=== PATIENT | female | born 1960 | race Caucasian/White ===

== ENCOUNTER 2016-12-14 18:11 | Emergency (ER) | payer OTHER, BC ==
--- NOTE | 2016-12-14 19:50 | DIAGNOSTIC IMAGING REPORT ---
PROCEDURE: XR CHEST 1 VIEW INDICATION: CHEST PAIN TECHNIQUE: Portable AP view (1930 hours). COMPARISON: None. FINDINGS: Lungs are clear. Heart and mediastinum are normal. Thorax is normal. IMPRESSION: 1. Negative chest.
--- NOTE | 2016-12-14 21:13 | ED CLINICAL REPORT ---
Clinical Report - Physicians/Mid Levels [facility] [address] [place] [place] [address] 12/14/2016 18:13 Patient: MISSAEL PECK Time Seen: 1820; initial patient contact. Arrived- By private vehicle. Historian- patient. HISTORY OF PRESENT ILLNESS Chief Complaint: PALPITATIONS. This started yesterday and is now gone (lasted 4 minutes). Onset during rest. History of caffeine use prior to onset. No history of decongestants use prior to onset, cocaine use prior to onset or amphetamine use prior to onset. It was abrupt in onset and has been constant. Modifying factors. Not worsened by anything. Not relieved by anything. It is described as a fast heart beat. She complains of dizziness. No chest pain, sweating episodes, fainting episodes or tingling. She has had chest discomfort, difficulty breathing and dizziness. Similar symptoms previously: None. Recent medical care: Not recently seen/assessed. REVIEW OF SYSTEMS No fever, chills, orthopnea or calf pain. All systems otherwise negative, except as recorded above. PAST HISTORY Chronic lymphoid leukemia, disease. Hypothyroidism. ADDITIONAL SURGERIES: Hysterectomy. Neck Surgery. -. SOCIAL HISTORY Former smoker. Occasional alcohol use. No drug use. ADDITIONAL NOTES The nursing notes have been reviewed. PHYSICAL EXAM Vital Signs: 12/14/2016 18:43 BP: 141/82. HR: 80. RR: 16. O2 saturation: 100%. Have been reviewed. Hypertensive. Heart rate normal. Respiratory rate normal. Temperature normal. Oxygen saturation normal. Appearance: Alert. Oriented X3. No acute distress. Eyes: Eyes normal inspection. ENT: Pharynx normal. Neck: Normal inspection. Neck supple. No JVD, carotid bruit, lymphadenopathy or thyromegaly. CVS: Normal heart rate and rhythm. Heart sounds normal. Respiratory: No respiratory distress. Breath sounds normal. Skin: Skin warm and dry. Normal skin color. Extremities: No calf tenderness. No lower extremity edema. Neuro: Oriented X 3. LABS, X-RAYS, AND EKG EKG: EKG time: (1841). No acute process. No acute ischemia. Normal EKG. Normal sinus rhythm. Rate: 73. Normal P waves. Normal MICAH. Normal QRS complex. Normal axis. Normal ST and T waves, QT and QTc. Prior EKG unavailable. The study has been interpreted contemporaneously by me. The study has been independently viewed by me. The EKG appears to be a good tracing. Interpretation time: 1841. Laboratory Tests: UA-Culture if indicated: (ELIDA: 12/14/2016 19:29) ( [facility] 12/14/2016 20:05) Final results Test Result Flag Units (Reference) URINE COLOR STRAW URINE APPEARANCE CLEAR URINE GLUCOSE NEGATIVE (NEGATIVE) URINE BILIRUBIN NEGATIVE (NEGATIVE) URINE KETONE NEGATIVE (NEGATIVE) URINE SPECIFIC GRAVITY <= 1.005 L (1.010-1.030) URINE PH 6.0 (5.0-8.0) URINE PROTEIN NEGATIVE (NEGATIVE) URINE UROBILINOGEN 0.2 EU/dL (0.2-1.0) URINE NITRITE NEGATIVE (NEGATIVE) URINE BLOOD TRACE-INTACT (NEGATIVE) URINE LEUK ESTERASE NEGATIVE (NEGATIVE) URINE RBC NONE SEEN rbc/hpf (0-1) URINE WBC RARE wbc/hpf (0-1) URINE EPITHELIAL CELLS RARE EPI/hpf (0-5) URINE BACTERIA NONE SEEN (NONE SEEN) URINE COMMENT CULT NOT INDICATED URINE CULTURES ARE SET-UP BASED ON THE FOLLOWING CRITERIA:POSITIVE NITRITEPOSITIVE LEUKOCYTE ESTERASEGREATER THAN 10 WHITE BLOOD CELLSMODERATE (2+) OR GREATER BACTERIA CBC w Diff: (ELIDA: 12/14/2016 19:39) ( [facility] 12/14/2016 19:56) IP Test Result Flag Units (Reference) WHITE BLOOD COUNT 20.8 H K/uL (4.5-11.5) RED BLOOD COUNT 4.94 M/uL (4.00-5.20) HEMOGLOBIN 14.4 gm/dL (12.0-16.0) HEMATOCRIT 43.4 % (36.0-46.0) MEAN CELL VOLUME 88 fL (80-100) MEAN CORPUSCULAR HGB 29 pg (26-34) MEAN CORPUSCULAR HGB CONC 33 g/dL (31-37) RED CELL DISTRIBUTION WIDTH 14.0 % (11.6-14.8) PLATELET COUNT 191 K/uL (150-400) LYMPH % 73.8 H % (25-40) MONO % 3.4 % (3-14) GRANULOCYTE % 22.8 L (53-90) PT with INR: (ELIDA: 12/14/2016 19:39) ( [facility] 12/14/2016 20:53) Final results Test Result Flag Units (Reference) INR 0.9 (0.8-1.2) Low Intensity Therapy: INR 1.5-2.0 PT range 18.5-23.1Mod.Intensity Therapy: INR 2.0-3.0 PT range 23.1-31.5High Intensity Therapy: INR 2.5-3.5 PT range 27.4-35.5High Intensity Therapy 2: INR 3.0-4.0 PT range 31.5-39.3 APTT 25 SECONDS (24-34) D-DIMER QUANTITATIVE 0.44 ug/mLFEU (0.27-0.52) The primary value of this quantitative assay relates toits negative predictive value (i.e. exclusion) of pulmonaryembolism/deep vein thrombosis/DIC.Elevated levels of d-dimer may also occur with:, age, cancer, inflammation, liver disease,post-op, infection, hematoma, coronary disease, peripheralarteriopathy, bleeding disorders and thrombolytic treatment.Results should be correlated with other clinical andradiological data.Testing Methodology: Latex Immunoassay BNP: (ELIDA: 12/14/2016 19:39) ( [facility] 12/14/2016 20:12) Final results Test Result Flag Units (Reference) B-TYPE NATRIURETIC PEPTIDE 21.3 pg/ml (5-100) TSH: (ELIDA: 12/14/2016 19:39) ( [facility] 12/14/2016 20:24) Final results Test Result Flag Units (Reference) THYROID STIMULATING HORMONE 0.027 L uIU/mL (0.30-3.74) CHEM 13 PANEL: (ELIDA: 12/14/2016 19:39) ( [facility] 12/14/2016 20:16) Final results Test Result Flag Units (Reference) GLUCOSE 101 mg/dL (70-110) BUN 12 mg/dL (7-18) CREATININE 0.8 mg/dL (0.6-1.3) Estimated GFR >60 mL/min Estimated GFR- >60 mL/min Note: Persistent reduction over 3 months in eGFR<60 mL/min/1.73 m2 defines CKD. Patients with eGFR values>=60 mL/min/1.73 m2 may also have CKD if evidence ofpersistent proteinuria. Additional information may be foundat www.kidney.org. SODIUM 143 mmol/L (136-145) POTASSIUM 3.9 mmol/L (3.5-5.1) CHLORIDE 107 mmol/L (98-107) CARBON DIOXIDE 26 mmol/L (21-32) CALCIUM 9.5 mg/dL (8.5-10.1) TOTAL PROTEIN 6.9 g/dL (6.4-8.2) ALBUMIN 3.9 g/dL (3.3-5.0) BILIRUBIN, TOTAL 0.4 mg/dL (0.0-1.0) ALKALINE PHOSPHATASE 71 U/L (46-116) AST (SGOT) 20 U/L (15-37) ALT (SGPT) 34 U/L (12-78) CPK 63 U/L (24-260) MAGNESIUM 2.2 mg/dL (1.8-2.4) TROPONIN I <0.05 L ng/mL (0.00-1.5) TROPONIN REFERENCE RANGE:<0.1 NEGATIVE0.1-1.5 INDETERMINANT>1.5 POSITIVE . PROGRESS AND PROCEDURES Disposition: Discharged home in good and improved condition. Condition: good. CLINICAL IMPRESSION Palpitations Acquired hypothyroidism (With supressed TSH). INSTRUCTIONS Avoid stimulants (such as cigarettes, coffee, cold medicines, sinus medicines, street drugs). Drink plenty of fluids. Your Current Medications: STOP TAKING THE FOLLOWING MEDICATIONS: Synthroid Oral. CONTINUE TAKING THE FOLLOWING MEDICATIONS: Ambien Oral. Follow-up: Screening today revealed the patient's blood pressure to be in the pre-hypertensive range. The patient should follow up with a primary care provider for blood pressure management. (Electronically signed by Akira Ulrich Dr. 12/14/2016 21:25)
--- NOTE | 2016-12-14 21:13 | ED NURSING NOTES ---
Clinical Report - Nurses [facility] [address] [place] [address] 12/14/2016 18:13 Patient: MISSAEL PECK TRIAGE Triage time 18:33. Acuity: LEVEL 2. Chief Complaint: ("twinges" in chest). 18:43 12/14/16. Alert. No acute distress. SEPSIS SCREEN: Sepsis Screen. Negative (no infection suspected/documented). --18:43 Juan Jean R.N. 18:43 12/14/16. BP: 141/82. HR: 80. RR: 16. O2 saturation: 100%. Pain level now 3/10. --18:43 Juan Jean R.N. Weight: 74.3 kg stated. Height/Length: 68 inches Per Patient. BMI: 24.9. --18:38 Juan Jean R.N. Medications Synthroid Oral. --18:39 Juan Jean R.N. Ambien Oral. --18:39 Juan Jean R.N. Allergies No Known Drug Allergy. --18:40 Juan Jean R.N. Medication/allergy information source: the patient. --18:43 Juan Jean R.N. History Arrived by private vehicle. Historian: patient. Accompanied by family. Primary physician (bud). ( felt "twinges" in her chest yesterday while driving, lasting only five minutes. states she felt her heart rate might have been a little fast.). Treatment GASTROENTEROLOGIST: (sudafed, robaxin). PAST MEDICAL HX: The patient has had a hysterectomy. Denies current . SOCIAL HX: Former smoker, end date 1996. Occasional alcohol use. No drug use. SELF HARM ASSESSMENT: A self harm assessment was performed. The patient answered "no" to the question "Do you have thoughts of harming or killing yourself?" and "Have you recently had thoughts about harming or killing others?". FALL RISK ASSESSMENT: Fall risk assessment completed. No fall risk identified. NUTRITIONAL RISK ASSESSMENT: The nutritional risk assessment revealed no deficiencies. FUNCTIONAL ASSESSMENT: Functional assessment: no impairments noted. LEARNING NEEDS ASSESSMENT: The learning needs assessment revealed no barriers. SKIN INTEGRITY ASSESSMENT: Skin integrity risk assessment completed. No skin integrity risk identified. --18:43 Juan Jean R.N. PROBLEMS: Chronic lymphoid leukemia, disease. Hypothyroidism. --18:41 Juan Jean R.N. ADDITIONAL SURGERIES: Hysterectomy. Neck Surgery. --18:41 Juan Jean R.N. Interventions ID band on patient. To treatment room. --18:43 Juan Jean R.N. PHYSICAL ASSESSMENT 18:43 12/14/16. Ambulatory to room. GENERAL / NEURO / PSYCH: Alert. Oriented X 4. Appears in no acute distress. RESPIRATORY: Respirations not labored. CVS: Capillary refill less than 2 seconds. GI / : Abdomen soft. EXTREMITIES: No lower extremity edema. SKIN: Skin is warm and dry. --18:43 Juan Jean R.N. NURSING PROGRESS NOTES 18:44 12/14/16. The plan of care for this patient has been created. personnel monitor, pulse oximeter and NIBP monitor placed on patient. Patient gowned. Head of bed elevated. Call light placed in reach. Bed placed in lowest position. Brakes of bed on. Patient ready for evaluation- chart flagged. --18:44 Juan Jean R.N. Cardiac rhythm: normal sinus rhythm. --18:45 Juan Jean R.N. EKG time: (1841). EKG was performed by a tech and shown to the ED physician. --18:46 Juan Jean R.N. Care transferred and report given (FRANSICO Lujan). --19:05 Juan Jean R.N. 19:40 12/14/2016 Site #1 started via IV in the right antecubital space with an 20g angiocath, with aseptic technique and good blood return; one attempt. Blood drawn: rainbow set. Labeled in the presence of the patient and sent to the lab. Saline lock flushed with 10 mL saline. --19:45 Le Phipps R.N. The patient reports no complaints and she is calm. Overall patient status is the same- she states feels the same. ( pt sitting waiting for dispo, no distress noted, will continue to monitor). RESPIRATORY: No respiratory distress. Breath sounds normal. CVS: Normal sinus rhythm noted. SKIN: Skin is warm and dry. Skin color within normal limits. Two patient identifiers checked. Call light placed in reach. Side rails up x 1. Bed placed in lowest position. Brakes of bed on. --21:06 Le Phipps R.N. 21:04 12/14/16. BP: 130/84 taken on the left arm, while sitting. HR: 65 (regular, normal rate and strong). RR: 18 (regular and labored). O2 saturation: 99% on room air. Temp: deferred. Pain level now: 0/10. --21:06 Le Phipps R.N. Reassurance given to the patient and patient's family. --21:06 Le Phipps R.N. DISPOSITION / DISCHARGE 21:30 12/14/2016 Site #1 removed upon discharge. Catheter intact. Manual pressure and bandage applied. --21:35 Le Phipps R.N. Condition at departure: improved and stable. No learning barriers present. Discharge instructions provided and reviewed with the patient. Reviewed referral to a primary care physician for followup. Reviewed diet (no stimulants). Patient verbalized understanding. Written instructions provided in La[place]. The patient was discharged home and accompanied by spouse. She left the Emergency Department ambulatory and via private vehicle. Spouse driving. --21:36 Le Phipps R.N. 21:30 12/14/16. BP: 136/98 taken on the left arm, while lying. HR: 66 (regular and normal rate). RR: 18 (regular, unlabored and normal). O2 saturation: 98% on room air. Temp: deferred. Pain level now: 0/10. --21:36 Le Phipps R.N. Departure time: 2132. --21:37 Le Phipps R.N. Locked/Released at 12/14/2016 21:37 by Le Phipps R.N.
--- NOTE | 2016-12-14 21:13 | ED NURSING NOTES ---
Clinical Report - Nurses [facility] [address] [place] [address] 12/14/2016 18:13 Patient: MISASEL PECK TRIAGE Triage time 18:33. Acuity: LEVEL 2. Chief Complaint: ("twinges" in chest). 18:43 12/14/16. Alert. No acute distress. SEPSIS SCREEN: Sepsis Screen. Negative (no infection suspected/documented). --18:43 Juan Jean R.N. 18:43 12/14/16. BP: 141/82. HR: 80. RR: 16. O2 saturation: 100%. Pain level now 3/10. --18:43 Juan Jean R.N. Weight: 74.3 kg stated. Height/Length: 68 inches Per Patient. BMI: 24.9. --18:38 Juan Jean R.N. Medications Synthroid Oral. --18:39 Juan Jean R.N. Ambien Oral. --18:39 Juan Jean R.N. Allergies No Known Drug Allergy. --18:40 Juan Jean R.N. Medication/allergy information source: the patient. --18:43 Juan Jean R.N. History Arrived by private vehicle. Historian: patient. Accompanied by family. Primary physician (bud). ( felt "twinges" in her chest yesterday while driving, lasting only five minutes. states she felt her heart rate might have been a little fast.). Treatment PIG HANDLER: (sudafed, robaxin). PAST MEDICAL HX: The patient has had a hysterectomy. Denies current . SOCIAL HX: Former smoker, end date 1996. Occasional alcohol use. No drug use. SELF HARM ASSESSMENT: A self harm assessment was performed. The patient answered "no" to the question "Do you have thoughts of harming or killing yourself?" and "Have you recently had thoughts about harming or killing others?". FALL RISK ASSESSMENT: Fall risk assessment completed. No fall risk identified. NUTRITIONAL RISK ASSESSMENT: The nutritional risk assessment revealed no deficiencies. FUNCTIONAL ASSESSMENT: Functional assessment: no impairments noted. LEARNING NEEDS ASSESSMENT: The learning needs assessment revealed no barriers. SKIN INTEGRITY ASSESSMENT: Skin integrity risk assessment completed. No skin integrity risk identified. --18:43 Juan Jean R.N. PROBLEMS: Chronic lymphoid leukemia, disease. Hypothyroidism. --18:41 Juan Jean R.N. ADDITIONAL SURGERIES: Hysterectomy. Neck Surgery. --18:41 Juan Jean R.N. Interventions ID band on patient. To treatment room. --18:43 Juan Jean R.N. PHYSICAL ASSESSMENT 18:43 12/14/16. Ambulatory to room. GENERAL / NEURO / PSYCH: Alert. Oriented X 4. Appears in no acute distress. RESPIRATORY: Respirations not labored. CVS: Capillary refill less than 2 seconds. GI / : Abdomen soft. EXTREMITIES: No lower extremity edema. SKIN: Skin is warm and dry. --18:43 Juan Jean R.N. NURSING PROGRESS NOTES 18:44 12/14/16. The plan of care for this patient has been created. film and video editor, pulse oximeter and NIBP monitor placed on patient. Patient gowned. Head of bed elevated. Call light placed in reach. Bed placed in lowest position. Brakes of bed on. Patient ready for evaluation- chart flagged. --18:44 Juan Jean R.N. Cardiac rhythm: normal sinus rhythm. --18:45 Juan Jean R.N. EKG time: (1841). EKG was performed by a tech and shown to the ED physician. --18:46 Juan Jean R.N. Care transferred and report given (FRANSICO Lujan). --19:05 Juan Jean R.N. 19:40 12/14/2016 Site #1 started via IV in the right antecubital space with an 20g angiocath, with aseptic technique and good blood return; one attempt. Blood drawn: rainbow set. Labeled in the presence of the patient and sent to the lab. Saline lock flushed with 10 mL saline. --19:45 Le Phipps R.N. The patient reports no complaints and she is calm. Overall patient status is the same- she states feels the same. ( pt sitting waiting for dispo, no distress noted, will continue to monitor). RESPIRATORY: No respiratory distress. Breath sounds normal. CVS: Normal sinus rhythm noted. SKIN: Skin is warm and dry. Skin color within normal limits. Two patient identifiers checked. Call light placed in reach. Side rails up x 1. Bed placed in lowest position. Brakes of bed on. --21:06 Le Phipps R.N. 21:04 12/14/16. BP: 130/84 taken on the left arm, while sitting. HR: 65 (regular, normal rate and strong). RR: 18 (regular and labored). O2 saturation: 99% on room air. Temp: deferred. Pain level now: 0/10. --21:06 Le Phipps R.N. Reassurance given to the patient and patient's family. --21:06 Le Phipps R.N. DISPOSITION / DISCHARGE 21:30 12/14/2016 Site #1 removed upon discharge. Catheter intact. Manual pressure and bandage applied. --21:35 Le Phipps R.N. Condition at departure: improved and stable. No learning barriers present. Discharge instructions provided and reviewed with the patient. Reviewed referral to a primary care physician for followup. Reviewed diet (no stimulants). Patient verbalized understanding. Written instructions provided in Greek. The patient was discharged home and accompanied by spouse. She left the Emergency Department ambulatory and via private vehicle. Spouse driving. --21:36 Le Phipps R.N. 21:30 12/14/16. BP: 136/98 taken on the left arm, while lying. HR: 66 (regular and normal rate). RR: 18 (regular, unlabored and normal). O2 saturation: 98% on room air. Temp: deferred. Pain level now: 0/10. --21:36 Le Phipps R.N. Departure time: 2132. --21:37 Le Phipps R.N. Locked/Released at 12/14/2016 21:37 by Le Phipps R.N.
--- NOTE | 2016-12-14 21:13 | ED ORDER SUMMARY ---
..... Patient: MISSAEL PECK OrderSheet VisitID: [id number] [address] [place] [address] 56y, F Registration Date/Time: 12/14/2016 ORDER SHEET Weight: 74.3 kg (stated) Allergies: No Known Drug Allergy GENERAL ORDERS: Chest 1V Urgent (19:12/14/2016 Emelia Mcbride) (Ack 19:27 IJurca ER Tech1) (19:33 CBradburn R.N.) Cardiac Panel Stat (:12/14/2016 Emelia Mcbride) (Ack 19:27 IJurca ER Tech1) (19:44 CBradburn R.N.) UA-Culture if indicated Urgent (:12/14/2016 Emelia Mcbride) (Ack 19:27 IJurca ER Tech1) (19:33 CBradburn R.N.) TSH Urgent (:12/14/2016 Emelia Mcbride) (Ack 19:27 IJurca ER Tech1) (19:44 CBradburn R.N.) PT with INR Urgent (:12/14/2016 Emelia Mcbride) (Ack 19:27 IJurca ER Tech1) (19:44 CBradburn R.N.) PTT Urgent (:12/14/2016 Emelia Mcbride) (Ack 19:27 IJurca ER Tech1) (19:44 CBradburn R.N.) D-Dimer Urgent (:12/14/2016 Emelia Mcbride) (Ack 19:27 IJurca ER Tech1) (19:44 CBradburn R.N.) BNP Urgent (:12/14/2016 Emelia Mcbride) (Ack 19:27 IJurca ER Tech1) (19:44 CBradburn R.N.) MEDICATION ORDERS: IV FLUIDS: IV Saline Lock (:12/14/2016 Emelia Mcbride) (19:45 CBradburn R.N.) ORDER SHEET NOTES: [Electronically signed by Akira Ulrich Dr. (21:25 12/14/2016)] [Electronically signed by Le Phipps R.N. (21:37 12/14/2016)] [Electronically locked/signed by Le Phipps R.N. (21:37 12/14/2016)]
--- NOTE | 2016-12-14 21:13 | ED ORDER SUMMARY ---
..... Patient: MISSAEL PECK OrderSheet [facility] VisitID: [id number] [address] [place] [address] 56y, F Registration Date/Time: 12/14/2016 ORDER SHEET Weight: 74.3 kg (stated) Allergies: No Known Drug Allergy GENERAL ORDERS: Chest 1V Urgent (19:12/14/2016 Emelia Mcbride) (Ack 19:27 IJurca ER Tech1) (19:33 CBradburn R.N.) Cardiac Panel Stat (:12/14/2016 Emelia Mcbride) (Ack 19:27 IJurca ER Tech1) (19:44 CBradburn R.N.) UA-Culture if indicated Urgent (:12/14/2016 Emelia Mcbride) (Ack 19:27 IJurca ER Tech1) (19:33 CBradburn R.N.) TSH Urgent (:12/14/2016 Emelia Mcbride) (Ack 19:27 IJurca ER Tech1) (19:44 CBradburn R.N.) PT with INR Urgent (:12/14/2016 Emelia Mcbride) (Ack 19:27 IJurca ER Tech1) (19:44 CBradburn R.N.) PTT Urgent (:12/14/2016 Emelia Mcbride) (Ack 19:27 IJurca ER Tech1) (19:44 CBradburn R.N.) D-Dimer Urgent (:12/14/2016 Emelia Mcbride) (Ack 19:27 IJurca ER Tech1) (19:44 CBradburn R.N.) BNP Urgent (:12/14/2016 Emelia Mcbride) (Ack 19:27 IJurca ER Tech1) (19:44 CBradburn R.N.) MEDICATION ORDERS: IV FLUIDS: IV Saline Lock (:12/14/2016 Emelia Mcbride) (19:45 CBradburn R.N.) ORDER SHEET NOTES: [Electronically signed by Akira Ulrich Dr. (21:25 12/14/2016)] [Electronically signed by Le Phipps R.N. (21:37 12/14/2016)] [Electronically locked/signed by Le Phipps R.N. (21:37 12/14/2016)]
--- NOTE | 2016-12-14 21:13 | ED CLINICAL REPORT ---
Clinical Report - Physicians/Mid Levels [facility] [address] [place] [address] 12/14/2016 18:13 Patient: MISSAEL PECK Time Seen: 1820; initial patient contact. Arrived- By private vehicle. Historian- patient. HISTORY OF PRESENT ILLNESS Chief Complaint: PALPITATIONS. This started yesterday and is now gone (lasted 4 minutes). Onset during rest. History of caffeine use prior to onset. No history of decongestants use prior to onset, cocaine use prior to onset or amphetamine use prior to onset. It was abrupt in onset and has been constant. Modifying factors. Not worsened by anything. Not relieved by anything. It is described as a fast heart beat. She complains of dizziness. No chest pain, sweating episodes, fainting episodes or tingling. She has had chest discomfort, difficulty breathing and dizziness. Similar symptoms previously: None. Recent medical care: Not recently seen/assessed. REVIEW OF SYSTEMS No fever, chills, orthopnea or calf pain. All systems otherwise negative, except as recorded above. PAST HISTORY Chronic lymphoid leukemia, disease. Hypothyroidism. ADDITIONAL SURGERIES: Hysterectomy. Neck Surgery. -. SOCIAL HISTORY Former smoker. Occasional alcohol use. No drug use. ADDITIONAL NOTES The nursing notes have been reviewed. PHYSICAL EXAM Vital Signs: 12/14/2016 18:43 BP: 141/82. HR: 80. RR: 16. O2 saturation: 100%. Have been reviewed. Hypertensive. Heart rate normal. Respiratory rate normal. Temperature normal. Oxygen saturation normal. Appearance: Alert. Oriented X3. No acute distress. Eyes: Eyes normal inspection. ENT: Pharynx normal. Neck: Normal inspection. Neck supple. No JVD, carotid bruit, lymphadenopathy or thyromegaly. CVS: Normal heart rate and rhythm. Heart sounds normal. Respiratory: No respiratory distress. Breath sounds normal. Skin: Skin warm and dry. Normal skin color. Extremities: No calf tenderness. No lower extremity edema. Neuro: Oriented X 3. LABS, X-RAYS, AND EKG EKG: EKG time: (1841). No acute process. No acute ischemia. Normal EKG. Normal sinus rhythm. Rate: 73. Normal P waves. Normal MICAH. Normal QRS complex. Normal axis. Normal ST and T waves, QT and QTc. Prior EKG unavailable. The study has been interpreted contemporaneously by me. The study has been independently viewed by me. The EKG appears to be a good tracing. Interpretation time: 1841. Laboratory Tests: UA-Culture if indicated: (ELIDA: 12/14/2016 19:29) ( [facility] [place] 12/14/2016 20:05) Final results Test Result Flag Units (Reference) URINE COLOR STRAW URINE APPEARANCE CLEAR URINE GLUCOSE NEGATIVE (NEGATIVE) URINE BILIRUBIN NEGATIVE (NEGATIVE) URINE KETONE NEGATIVE (NEGATIVE) URINE SPECIFIC GRAVITY <= 1.005 L (1.010-1.030) URINE PH 6.0 (5.0-8.0) URINE PROTEIN NEGATIVE (NEGATIVE) URINE UROBILINOGEN 0.2 EU/dL (0.2-1.0) URINE NITRITE NEGATIVE (NEGATIVE) URINE BLOOD TRACE-INTACT (NEGATIVE) URINE LEUK ESTERASE NEGATIVE (NEGATIVE) URINE RBC NONE SEEN rbc/hpf (0-1) URINE WBC RARE wbc/hpf (0-1) URINE EPITHELIAL CELLS RARE EPI/hpf (0-5) URINE BACTERIA NONE SEEN (NONE SEEN) URINE COMMENT CULT NOT INDICATED URINE CULTURES ARE SET-UP BASED ON THE FOLLOWING CRITERIA:POSITIVE NITRITEPOSITIVE LEUKOCYTE ESTERASEGREATER THAN 10 WHITE BLOOD CELLSMODERATE (2+) OR GREATER BACTERIA CBC w Diff: (ELIDA: 12/14/2016 19:39) ( [facility] [place] 12/14/2016 19:56) IP Test Result Flag Units (Reference) WHITE BLOOD COUNT 20.8 H K/uL (4.5-11.5) RED BLOOD COUNT 4.94 M/uL (4.00-5.20) HEMOGLOBIN 14.4 gm/dL (12.0-16.0) HEMATOCRIT 43.4 % (36.0-46.0) MEAN CELL VOLUME 88 fL (80-100) MEAN CORPUSCULAR HGB 29 pg (26-34) MEAN CORPUSCULAR HGB CONC 33 g/dL (31-37) RED CELL DISTRIBUTION WIDTH 14.0 % (11.6-14.8) PLATELET COUNT 191 K/uL (150-400) LYMPH % 73.8 H % (25-40) MONO % 3.4 % (3-14) GRANULOCYTE % 22.8 L (53-90) PT with INR: (ELIDA: 12/14/2016 19:39) ( [facility] 12/14/2016 20:53) Final results Test Result Flag Units (Reference) INR 0.9 (0.8-1.2) Low Intensity Therapy: INR 1.5-2.0 PT range 18.5-23.1Mod.Intensity Therapy: INR 2.0-3.0 PT range 23.1-31.5High Intensity Therapy: INR 2.5-3.5 PT range 27.4-35.5High Intensity Therapy 2: INR 3.0-4.0 PT range 31.5-39.3 APTT 25 SECONDS (24-34) D-DIMER QUANTITATIVE 0.44 ug/mLFEU (0.27-0.52) The primary value of this quantitative assay relates toits negative predictive value (i.e. exclusion) of pulmonaryembolism/deep vein thrombosis/DIC.Elevated levels of d-dimer may also occur with:, age, cancer, inflammation, liver disease,post-op, infection, hematoma, coronary disease, peripheralarteriopathy, bleeding disorders and thrombolytic treatment.Results should be correlated with other clinical andradiological data.Testing Methodology: Latex Immunoassay BNP: (ELIDA: 12/14/2016 19:39) ( [facility] 12/14/2016 20:12) Final results Test Result Flag Units (Reference) B-TYPE NATRIURETIC PEPTIDE 21.3 pg/ml (5-100) TSH: (ELIDA: 12/14/2016 19:39) ( [facility] 12/14/2016 20:24) Final results Test Result Flag Units (Reference) THYROID STIMULATING HORMONE 0.027 L uIU/mL (0.30-3.74) CHEM 13 PANEL: (ELIDA: 12/14/2016 19:39) ( [facility] 12/14/2016 20:16) Final results Test Result Flag Units (Reference) GLUCOSE 101 mg/dL (70-110) BUN 12 mg/dL (7-18) CREATININE 0.8 mg/dL (0.6-1.3) Estimated GFR >60 mL/min Estimated GFR- >60 mL/min Note: Persistent reduction over 3 months in eGFR<60 mL/min/1.73 m2 defines CKD. Patients with eGFR values>=60 mL/min/1.73 m2 may also have CKD if evidence ofpersistent proteinuria. Additional information may be foundat www.kidney.org. SODIUM 143 mmol/L (136-145) POTASSIUM 3.9 mmol/L (3.5-5.1) CHLORIDE 107 mmol/L (98-107) CARBON DIOXIDE 26 mmol/L (21-32) CALCIUM 9.5 mg/dL (8.5-10.1) TOTAL PROTEIN 6.9 g/dL (6.4-8.2) ALBUMIN 3.9 g/dL (3.3-5.0) BILIRUBIN, TOTAL 0.4 mg/dL (0.0-1.0) ALKALINE PHOSPHATASE 71 U/L (46-116) AST (SGOT) 20 U/L (15-37) ALT (SGPT) 34 U/L (12-78) CPK 63 U/L (24-260) MAGNESIUM 2.2 mg/dL (1.8-2.4) TROPONIN I <0.05 L ng/mL (0.00-1.5) TROPONIN REFERENCE RANGE:<0.1 NEGATIVE0.1-1.5 INDETERMINANT>1.5 POSITIVE . PROGRESS AND PROCEDURES Disposition: Discharged home in good and improved condition. Condition: good. CLINICAL IMPRESSION Palpitations Acquired hypothyroidism (With supressed TSH). INSTRUCTIONS Avoid stimulants (such as cigarettes, coffee, cold medicines, sinus medicines, street drugs). Drink plenty of fluids. Your Current Medications: STOP TAKING THE FOLLOWING MEDICATIONS: Synthroid Oral. CONTINUE TAKING THE FOLLOWING MEDICATIONS: Ambien Oral. Follow-up: Screening today revealed the patient's blood pressure to be in the pre-hypertensive range. The patient should follow up with a primary care provider for blood pressure management. (Electronically signed by Akira Ulrich Dr. 12/14/2016 21:25)
--- NOTE | 2016-12-14 21:37 | ED MED RECONCILIATION SUMMARY ---
Patient: VITO PECKNorm Shola Medication Reconciliation Report [facility] VisitID: [id number] [address] [place] [place] [address] 56y, F Registration Date/Time: 12/14/2016 Weight: 74.3 kg Height/Length: 68 in. BMI: 24.9 ALLERGIES: No Known Drug Allergy The patient's Home Medications are listed below: STOP TAKING THE FOLLOWING MEDICATIONS: Synthroid Oral CONTINUE TAKING THE FOLLOWING MEDICATIONS: Ambien Oral The source(s) of the original Home Medication information: patient The following Medications were given to the patient in the Emergency Department: None. The following Medications were prescribed to the patient: None.
--- NOTE | 2016-12-14 21:37 | ED MED RECONCILIATION SUMMARY ---
Patient: VITO PECKNorm Shola Medication Reconciliation Report [facility] VisitID: [id number] [address] [place] [address] 56y, F Registration Date/Time: 12/14/2016 Weight: 74.3 kg Height/Length: 68 in. BMI: 24.9 ALLERGIES: No Known Drug Allergy The patient's Home Medications are listed below: STOP TAKING THE FOLLOWING MEDICATIONS: Synthroid Oral CONTINUE TAKING THE FOLLOWING MEDICATIONS: Ambien Oral The source(s) of the original Home Medication information: patient The following Medications were given to the patient in the Emergency Department: None. The following Medications were prescribed to the patient: None.
--- NOTE | 2016-12-14 21:37 | ED DISCHARGE INSTRUCTIONS ---
Patient: MISSAEL PECK General Instructions [facility] VisitID: [id number] [address] [place] [address] 56y, F Registration Date/Time: 12/14/2016 Palpitations Acquired hypothyroidism (With supressed TSH). INSTRUCTIONS Avoid stimulants (such as cigarettes, coffee, cold medicines, sinus medicines, street drugs). Drink plenty of fluids. Your Current Medications: STOP TAKING THE FOLLOWING MEDICATIONS: Synthroid Oral. CONTINUE TAKING THE FOLLOWING MEDICATIONS: Ambien Oral. Follow-up: Screening today revealed the patient's blood pressure to be in the pre-hypertensive range. The patient should follow up with a primary care provider for blood pressure management. ADDITIONAL INFORMATION Heart Palpitations Palpitations refers to the feeling that your heart is beating hard, fast or irregular. Some people describe it as "pounding" or "skipped beats". Palpitations may occur in persons with heart disease, but can also occur in healthy persons. Heart-Related Causes: Arrhythmia (a change from the heart's normal rhythm) Disease of the heart valves Cet-Mfhto-Zttnjaq Causes: Certain medicines (such as asthma inhalers and decongestants) Some herbal supplements, energy drinks and pills, and weight loss pills Illegal stimulant drugs (such as cocaine, crank, methamphetamine, PCP) Caffeine, alcohol and tobacco Medical conditions such as thyroid disease, anemia, anxiety and panic disorder Sometimes the cause cannot be found. Home Care: Avoid excess caffeine, alcohol, tobacco and any stimulant drugs. Tell your doctor about any prescription or fmyj-ttl-saeermx or herbal medicines you take. Follow Up with your doctor or as advised by our staff. Get Prompt Medical Attention if any of the following occur together with palpitations: Weakness, dizziness, light-headed or fainting Chest pain or shortness of breath Rapid heart rate (over 120 beats per minute, at rest) Palpitations that lasts over 20 minutes Weakness of an arm or leg or one side of the face Difficulty with speech or vision You have been given the following additional information: Palpitations (Electronically signed by Akira Ulrich Dr. 12/14/2016 21:25)
--- NOTE | 2016-12-14 21:37 | ED MAR SUMMARY ---
..... Medication Administration Record [facility] [address] [place] [address] Patient: MISSAEL PECK Visit ID: [id number] 56y, F Weight: 74.3 kg Height/Length: 68 in BMI: 24.9 ALLERGIES: No Known Drug Allergy
--- NOTE | 2016-12-14 21:37 | ED DISCHARGE INSTRUCTIONS ---
Patient: MISSAEL PECK General Instructions [facility] VisitID: [id number] [address] [place] [address] 56y, F Registration Date/Time: 12/14/2016 Palpitations Acquired hypothyroidism (With supressed TSH). INSTRUCTIONS Avoid stimulants (such as cigarettes, coffee, cold medicines, sinus medicines, street drugs). Drink plenty of fluids. Your Current Medications: STOP TAKING THE FOLLOWING MEDICATIONS: Synthroid Oral. CONTINUE TAKING THE FOLLOWING MEDICATIONS: Ambien Oral. Follow-up: Screening today revealed the patient's blood pressure to be in the pre-hypertensive range. The patient should follow up with a primary care provider for blood pressure management. ADDITIONAL INFORMATION Heart Palpitations Palpitations refers to the feeling that your heart is beating hard, fast or irregular. Some people describe it as "pounding" or "skipped beats". Palpitations may occur in persons with heart disease, but can also occur in healthy persons. Heart-Related Causes: Arrhythmia (a change from the heart's normal rhythm) Disease of the heart valves Sgr-Uyjto-Iuimoix Causes: Certain medicines (such as asthma inhalers and decongestants) Some herbal supplements, energy drinks and pills, and weight loss pills Illegal stimulant drugs (such as cocaine, crank, methamphetamine, PCP) Caffeine, alcohol and tobacco Medical conditions such as thyroid disease, anemia, anxiety and panic disorder Sometimes the cause cannot be found. Home Care: Avoid excess caffeine, alcohol, tobacco and any stimulant drugs. Tell your doctor about any prescription or exdb-cfh-wgmgegq or herbal medicines you take. Follow Up with your doctor or as advised by our staff. Get Prompt Medical Attention if any of the following occur together with palpitations: Weakness, dizziness, light-headed or fainting Chest pain or shortness of breath Rapid heart rate (over 120 beats per minute, at rest) Palpitations that lasts over 20 minutes Weakness of an arm or leg or one side of the face Difficulty with speech or vision You have been given the following additional information: Palpitations (Electronically signed by Akira Ulrich Dr. 12/14/2016 21:25)
--- NOTE | 2016-12-14 21:37 | ED MAR SUMMARY ---
..... Medication Administration Record [facility] [address] [place] [address] Patient: MISSAEL PECK Visit ID: [id number] 56y, F Weight: 74.3 kg Height/Length: 68 in BMI: 24.9 ALLERGIES: No Known Drug Allergy
== END 2016-12-14 21:33 | disposition home or self-care (01) ==
LOC: ED SRH 18:11
DX: R00.2 Palpitations (principal); E03.9 Hypothyroidism, unspecified; C91.90 Lymphoid leukemia, unspecified not having achieved remission; Z87.891 Personal history of nicotine dependence
CPT/HCPCS: 90004; 90100; 90616; 91320; 91556; 91643; 92610; 92720; 93140; 94001; 94060; 95059